=== PATIENT | male | born 1970 | race Caucasian/White ===

== ENCOUNTER 2017-08-12 14:03 | Emergency (ER) | payer BC, OTHER ==
[2017-08-12 14:35] VITALS: BP 141/96
--- NOTE | 2017-08-12 14:56 | UC ---
Lower Extremity/Ankle HPI - HPI Summary HPI Summary: C/O Left achilles pain x 2weeks after carrying hardwood [place] down a bank to his [place]. - History of Current Complaint Chief Complaint: UCLowerExtremity Stated Complaint: LEFT ACHILLES INJURY Time Seen by Provider: 08/12/17 14:47 Hx Obtained From: Patient Onset/Duration: Sudden Onset, Lasting Weeks - 2, Still Present Severity Initially: Moderate Severity Currently: Severe Pain Intensity: 8 Aggravating Factor(s): Standing, Ambulation Alleviating Factor(s): Rest, Elevation Able to Bear Weight: Yes Legs: 1 - Swelling achilles bursae with tenderness of the bursa and achilles - Allergies/Home Medications Allergies/Adverse Reactions: Allergies Allergy/AdvReac Type Severity Reaction Status Date / Time No Known Allergies Allergy Verified 08/12/17 14:35 PMH/Surg Hx/FS Hx/Imm Hx Cardiovascular History: Hypertension Other Cardiovascular History: Heart block - Surgical History Surgical History: Yes Surgery Procedure, Year, and Place: pacemaker. right shoulder. left knee. left trigger finger - Family History Known Family History: Positive: Hypertension - Social History Occupation: Employed Full-time Lives: With Family Alcohol Use: Occasionally Substance Use Type: None Smoking Status (MU): Never Smoked Tobacco Have You Smoked in the Last Year: No Review of Systems Musculoskeletal: Arthralgia Is Patient Immunocompromised?: No All Other Systems Reviewed And Are Negative: Yes Physical Exam Triage Information Reviewed: Yes Appearance: Well-Appearing, No Pain Distress, Well-Nourished Vital Signs: Initial Vital Signs Temp 99.9 F 08/12/17 14:31 Pulse 82 08/12/17 14:31 Resp 16 08/12/17 14:31 BP 141/96 08/12/17 14:31 Pulse Ox 97 08/12/17 14:31 Vital Signs Reviewed: Yes Eyes: Positive: Conjunctiva Clear Neck exam: Normal Respiratory Exam: Normal Cardiovascular Exam: Normal Musculoskeletal: Positive: ROM Limited @ - left ankle, Other: - tender swollen left achilles and achilles bursae Neurological Exam: Normal Psychological Exam: Normal Skin Exam: Normal Lower Extremity Course/Dx - Differential Dx/Diagnosis Differential Diagnosis/HQI/PQRI: Bursitis, Sprain, Strain, Tendonitis Provider Diagnoses: Achilles tendonitis. Achilles bursitis Discharge - Discharge Plan Condition: Stable Disposition: HOME Patient Education Materials: Ankle Bursitis (ED), Tendinitis (ED) Referrals: Gonzalo Bradford MD [Primary Care Provider] - Additional Instructions: Go to [facility] in [place] for [employer] orthotics and possibly sneakers to help with the flat feet.
== END 2017-08-12 15:11 | disposition home or self-care (01) ==
LOC: UCCORT 14:03
DX: M76.62 Achilles tendinitis, left leg (principal); I10 Essential (primary) hypertension
CPT/HCPCS: 99211; G0463

== ENCOUNTER 2018-01-15 10:48 | Emergency (ER) | payer OTHER ==
[2018-01-15 11:12] VITALS: BP 119/73
--- NOTE | 2018-01-15 11:44 | RAD ---
INDICATION: Right rib injury. COMPARISON: Comparison is made with a prior chest x-ray study from June 25, 2006. TECHNIQUE: 4 views of the right ribs and dual-energy PA views of the chest were obtained. FINDINGS: No fracture or significant focal osseous abnormality is seen. The heart is within normal limits in size. There is a dual-chamber transvenous pacemaker present. The lungs are underinflated and clear. No pleural effusion or pneumothorax is seen. IMPRESSION: NO EVIDENCE FOR FRACTURE.
--- NOTE | 2018-01-15 12:02 | UC ---
Minor Trauma HPI - HPI Summary HPI Summary: RIGHT SIDE RIBS PAIN X 1 DAY INJURY TO HIS RIGHT FLANK / RIBS AREA AND HE FELL ON STAIRS C/O 4/5/6/7 RIB PAIN , INCREASE PAIN WITH MOVEMENT AND BREATHING BETTER WITH REST, MILD SOB, NO COUGH - History of Current Complaint Chief Complaint: UCUpperExtremity Stated Complaint: RIGHT SIDED RIB PAIN Time Seen by Provider: 01/15/18 10:59 Hx Obtained From: Patient Onset/Duration: Sudden Onset, Lasting Days - 1, Still Present Onset Of Pain: Post Accident - S/P FALL ON HIS RIGHT SIDE Severity Currently: Moderate Pain Intensity: 7 Mechanism Of Injury: Blunt Trauma Aggravating Factor(s): Coughing, Deep Breaths, Movement, Weight Bearing Alleviating Factor(s): Rest - Allergies/Home Medications Allergies/Adverse Reactions: Allergies Allergy/AdvReac Type Severity Reaction Status Date / Time No Known Allergies Allergy Verified 01/15/18 11:07 Home Medications: Home Medications Losartan TAB* [Cozaar TAB*] 25 mg PO DAILY 01/15/18 [History Confirmed 01/15/18] PMH/Surg Hx/FS Hx/Imm Hx Previously Healthy: Yes - Surgical History Surgical History: Yes Surgery Procedure, Year, and Place: pacemaker. right shoulder. left knee. left trigger finger - Family History Known Family History: Positive: Hypertension - Social History Alcohol Use: Occasionally Substance Use Type: None Smoking Status (MU): Never Smoked Tobacco Have You Smoked in the Last Year: No Review of Systems Constitutional: Negative Skin: Negative Eyes: Negative ENT: Negative Respiratory: Negative Cardiovascular: Negative Is Patient Immunocompromised?: No All Other Systems Reviewed And Are Negative: Yes Physical Exam Triage Information Reviewed: Yes Appearance: Well-Appearing, Well-Nourished, Pain Distress, Obese Vital Signs: Initial Vital Signs Temp 98.6 F 01/15/18 11:08 Pulse 75 01/15/18 11:08 Resp 16 01/15/18 11:08 BP 119/73 01/15/18 11:08 Pulse Ox 97 01/15/18 11:08 Vital Signs Reviewed: Yes Eye Exam: Normal Eyes: Positive: Conjunctiva Clear ENT: Positive: Normal ENT inspection, Hearing grossly normal, Pharynx normal, Pharyngeal erythema Dental: Positive: Percussion Tenderness @, Gross Decay/Caries @, Dental Fracture @ Respiratory: Positive: Chest non-tender, Lungs clear, Normal breath sounds, Other: - TENDERNESS RIGHT LATERAL 4/5/6/7 RIBS Cardiovascular: Positive: RRR, No Murmur, Pulses Normal Abdominal Exam: Normal Abdomen Description: Positive: Nontender, Soft. Negative: CVA Tenderness (R), CVA Tenderness (L), Distended, Guarding Bowel Sounds: Positive: Present Skin Exam: Normal Diagnostics - Laboratory Diagnostic Studies Completed/Ordered: IMPRESSION: NO EVIDENCE FOR FRACTURE. Minor Trauma Course/Dx - Differential Dx/Diagnosis Provider Diagnoses: CONTUSION LEFT RIBS Discharge - Sign-Out/Discharge Documenting (check all that apply): Patient Departure - Discharge Plan Condition: Stable Disposition: HOME Patient Education Materials: Rib Contusion (ED) Referrals: Gonzalo Bradford MD [Primary Care Provider] - 7 Days - Billing Disposition and Condition Condition: STABLE Disposition: Home
== END 2018-01-15 12:03 | disposition home or self-care (01) ==
LOC: UCCORT 10:48
DX: S20.20XA Contusion of thorax, unspecified, initial encounter (principal); W10.9XXA Fall (on) (from) unspecified stairs and steps, initial encounter; Y93.9 Activity, unspecified; Y92.9 Unspecified place or not applicable; Z95.0 Presence of cardiac pacemaker
CPT/HCPCS: 99211; G0463